=== PATIENT | male | born 1960 | race Caucasian/White ===

== ENCOUNTER 2019-03-10 11:06 | Emergency (ER) | payer OTHER ==
--- NOTE | 2019-03-10 13:32 | EDM.PDOC ---
Scribed by Coby Marroquin 03/10/19 1320 for Ernesto Loza MD ED HPI GENERAL MEDICAL PROBLEM - General Chief Complaint: Back Pain or Injury Stated Complaint: FELL ON ICE/FELL ON BACK AND HIT HEAD Time Seen by Provider: 03/10/19 12:05 Source of Information: Reports: Patient, RN, RN Notes Reviewed History Limitations: Reports: No Limitations - History of Present Illness INITIAL COMMENTS - FREE TEXT/NARRATIVE: Patient is a 58-year-old gentleman who presents to ER after he slipped and fell on ice about 10:15 today. Patient states he landed on ground injuring back of head and left side of back. Onset: Today Duration: Constant Location: Reports: Back Quality: Reports: Ache Severity: Mild Improves with: Reports: None Worsens with: Reports: None Associated Symptoms: Reports: No Other Symptoms Back Pain Score (Numeric/FACES): 4 - Related Data Allergies Allergy/AdvReac Type Severity Reaction Status Date / Time No Known Allergies Allergy Verified 03/10/19 11:31 Home Meds: Home Meds . [No Known Home Meds] 03/10/19 [History] Past Medical History HEENT History: Reports: Impaired Vision Cardiovascular History: Reports: None Respiratory History: Reports: None Gastrointestinal History: Reports: None Genitourinary History: Reports: None Neurological History: Reports: None Psychiatric History: Reports: None Endocrine/Metabolic History: Reports: None Hematologic History: Reports: None Immunologic History: Reports: None Oncologic (Cancer) History: Reports: None Dermatologic History: Reports: None - Infectious Disease History Infectious Disease History: Reports: None - Past Surgical History Head Surgeries/Procedures: Reports: None Musculoskeletal Surgical History: Reports: Other (See Below) Other Musculoskeletal Surgeries/Procedures:: right knee surgery x3, disk replacement C? Social & Family History - Family History Family Medical History: Noncontributory - Tobacco Use Smoking Status *Q: Never Smoker Second Hand Smoke Exposure: No - Caffeine Use Caffeine Use: Reports: Coffee - Recreational Drug Use Recreational Drug Use: No ED ROS GENERAL - Review of Systems Review Of Systems: Comprehensive ROS is negative, except as noted in HPI. ED EXAM,LOWER BACK PAIN/INJURY - Physical Exam Exam: See Below Exam Limited By: No Limitations General Appearance: Alert, WD/WN, No Apparent Distress Head: Atraumatic, Normocephalic Neck: Supple, Full Range of Motion, Tender Lateral, Other (Muscle spasm at paraspinal cervical region). No: Lymphadenopathy (L), Lymphadenopathy (R), Tender Midline Respiratory/Chest: No Respiratory Distress Cardiovascular: Regular Rate, Rhythm GI/Abdominal: Normal Bowel Sounds, Soft, Non-Tender Back Exam: Muscle Spasm (Thoracic), Paraspinal Tenderness (Thoracic and cervical ), Vertebral Tenderness (Lower thoracic). No: CVA Tenderness (L), CVA Tenderness (R) Extremities: Normal Inspection, Normal Range of Motion, Non-Tender, No Pedal Edema, Normal Capillary Refill Neurological: Alert, Normal Mood/Affect, Normal Dorsiflexion, CN II-XII Intact, Normal Gait, No Motor/Sensory Deficits, Oriented x 3 Psychiatric: Normal Mood Skin Exam: Warm, Dry, Intact, Normal Color, No Rash Course - Vital Signs Last Recorded V/S: Last Vital Signs Temp 98.6 F 03/10/19 11:37 Pulse 62 03/10/19 11:37 Resp 18 03/10/19 11:37 BP 144/93 H 03/10/19 11:37 Pulse Ox 98 03/10/19 11:37 - Orders/Labs/Meds Orders: Active Orders 24 hr Category Date Time Status Cervical Spine 2V or 3V [CR] Urgent Exams 03/10/19 12:14 Taken Thoracic Spine 2V [CR] Urgent Exams 03/10/19 12:14 Taken - Radiology Interpretation Free Text/Narrative:: X-ray thoracic spine: No acute fracture or malalignment identified. See rad report. X-ray cervical spine: No evidence of acute fracture or hardware failure. As you are aware more definitive evaluation of the intervertebral discs and spinal canal contents could be achieved with MRI, if clinically indicated. See rad report Departure - Departure Time of Disposition: 13:23 Disposition: Home, Self-Care 01 Condition: Good Clinical Impression: Contusion of back wall of thorax Qualifiers: Encounter type: initial encounter Laterality: unspecified laterality Qualified Code(s): S20.229A - Contusion of unspecified back wall of thorax, initial encounter Sprain of cervical neck Qualifiers: Encounter type: initial encounter Qualified Code(s): S13.9XXA - Sprain of joints and ligaments of unspecified parts of neck, initial encounter Fall due to ice or snow Qualifiers: Encounter type: initial encounter Qualified Code(s): W00.9XXA - Unspecified fall due to ice and snow, initial encounter - Discharge Information *PRESCRIPTION DRUG MONITORING PROGRAM REVIEWED*: No *COPY OF PRESCRIPTION DRUG MONITORING REPORT IN PATIENT FRANCISCO: No Instructions: Contusion, [id number], Cervical Sprain, [id number] Forms: ED Department Discharge Additional Instructions: Alternate heat and ice packs to the area of pain. Over the counter Tylenol or Ibuprofen for pain,. Activity as tolerated. Follow up in the clinic if not improving as expected in 1 week. Sepsis Event Note - Evaluation Sepsis Screening Result: No Definite Risk - Focused Exam Vital Signs: Vital Signs Temp Pulse Resp BP Pulse Ox 03/10/19 11:37 98.6 F 62 18 144/93 H 98 Date Exam was Performed: 03/10/19 Time Exam was Performed: 13:27 - My Orders Last 24 Hours: My Active Orders 03/10/19 12:14 Cervical Spine 2V or 3V [CR] Urgent Thoracic Spine 2V [CR] Urgent - Assessment/Plan Last 24 Hours: My Active Orders 03/10/19 12:14 Cervical Spine 2V or 3V [CR] Urgent Thoracic Spine 2V [CR] Urgent I have read and agree with the documentation that has been completed regarding this visit. By signing this record, I attest that the documentation was completed in my physical presence and is an accurate record of the encounter.
== END 2019-03-10 13:37 | disposition home or self-care (01) ==
LOC: DL.ED 11:06
DX: S13.9XXA Sprain of joints and ligaments of unspecified parts of neck, initial encounter (principal); S20.229A Contusion of unspecified back wall of thorax, initial encounter; W00.9XXA Unspecified fall due to ice and snow, initial encounter
CPT/HCPCS: 72040; 72070; 99283-25